=== PATIENT | male | born 1950 | race Hispanic/Latino ===

== ENCOUNTER → 2018-04-07 | Day surgery (SDC) | payer MEDICARE ==
--- NOTE | 2018-04-06 11:04 | Pre Op History & Physical ---
DATE OF SURGERY: April 07, 2018 CHIEF COMPLAINT: Chronic sinusitis and nasal obstruction. HPI: This 68 years old male has history of nasal obstruction. He has no epistaxis. The obstruction is worse on the left side. Patient has no trauma to the nose. He claimed that he has normal sense of smell. No previous surgery to the nose. The patient has some headaches. His condition has been treated with topical nasal steroid, decongestant, antibiotics with no improvement. A CT scan of paranasal sinuses done before surgery showed that patient has chronic pansinusitis on both sides. REVIEW OF SYSTEMS: System review showed no recent cardiovascular, respiratory, or GI problem. PAST MEDICAL HISTORY: Patient has no significant medical problem. PAST SURGICAL HISTORY: He has previous umbilical hernia surgery repair, cholecystectomy, and appendectomy. ALLERGIES: HE HAS NO KNOWN ALLERGY TO MEDICATION. CURRENT MEDICATIONS: He is on aspirin, clonazepam, venlafaxine, levothyroxine, simvastatin, and Generlac solution. SOCIAL HISTORY: HE is a nonsmoker and nondrinker. FAMILY HISTORY: Noncontributory. PHYSICAL EXAMINATION VITAL SIGNS: Within normal limits. EAR: Normal tympanic membranes bilaterally. NOSE: Hypertrophy of the inferior turbinate. A polyp was noted in the left nasal cavity. THROAT: Oropharynx and oral cavity show 1+ tonsils bilaterally with Mallampati level 2. NECK: No lymph node or thyroid palpable. CHEST: Good air entry bilaterally. CARDIOVASCULAR: S1 and S2. No murmur noted. IMPRESSION AND PLAN: Mr. Mendez has chronic sinusitis and nasal obstruction, which has been resistant to conservative therapy. Suggested treatment is endoscopic sinus surgery, septoplasty, resection of inferior turbinate, and other necessary procedures. The complication of procedure includes, but not limited to, bleeding, infection, CSF leak, blindness, double vision, meningitis, septal perforation, septal hematoma, persistent nasal obstruction, persistent nasal crusting, nasal deformity, or recurrence of the sinus problem. The alternative would be continued observation, continued antibiotic therapy, topical nasal steroid therapy, systemic steroid therapy, and decongestant. The patient was scheduled for surgery about 2 weeks ago; however, the patient ate on the day of surgery and surgery was canceled and rescheduled. Patient was advised to stop his aspirin at least 7 to 10 days before surgery. Patient has elected to undergo the surgical procedure. Job#: [id number] TRACY cc:DR. MATTHEW LOPEZ
[2018-04-06 13:13] LABS: BASOPHILS % 0.4 % (0.0-1.0); EOSINOPHILS # (AUTO) 0.5 (0.0-0.4); EOSINOPHILS % 5.5 % (0.0-6.0); HEMATOCRIT 41.2 % (38.2-49.6); HEMOGLOBIN 13.8 g/dL (14.0-18.0); LYMPHOCYTES # (AUTO) 3.3 (1.0-3.2); LYMPHOCYTES % 39.1 % (18.0-39.1); MEAN CORPUSCULAR HGB CONC 33.5 g/dL (31-35); MEAN CORPUSCULAR VOLUME 92.6 fL (81-99); MONOCYTES # (AUTO) 0.6 (0.2-0.8); MONOCYTES % 7.6 % (4.4-11.3); NEUTROPHILS # (AUTO) 3.9 (2.1-6.9); NEUTROPHILS % 47.3 % (38.7-80.0); PLATELET COUNT 195 x10e3/uL (140-360); RED BLOOD COUNT 4.45 x10e6/uL (4.3-5.7); RED CELL DISTRIBUTION WIDTH 12.7 % (11.7-14.4)
--- NOTE | 2018-04-06 14:01 | Diagnostic Imaging Report ---
EXAMINATION: PA and lateral views of the chest. COMPARISON: None CLINICAL HISTORY: Preop, nasal surgery DISCUSSION: Lungs are well-inflated. No focal consolidation, pleural effusion, or pneumothorax. Calcified granuloma left lower lobe. Tortuous thoracic aorta with otherwise normal cardiomediastinal contour. No acute osseous abnormality. Multilevel degenerative disc disease of the thoracic spine. IMPRESSION: No acute cardiopulmonary abnormalities. Signed by: Dr. Jorge Moncada M.D. on 04/06/2018 1:58 PM
[~2018-04-07] MED LIST: ACETAMINOPHEN/CODEINE 300MG - 30MG TAB ONE; ALFUZOSIN HCL10 MG; CETIRIZINE HCL10 MG; CLONAZEPAM0.5 MG PO; DEXAMETHASONE SOD PHOS 10 MG/1 ML VIAL ONE; EPINEPHRINE HCL INJ 1 MG/ML AMP ONE; FENTANYL CITRATE/PF 100MCG/2 ML INJ ONE; GENERLAC10 GM/15 M; GLUCOSAMINE MS480 ML; GLYCOPYRROLATE INJ 1MG/ 5 ML SYR ONE; LEVOTHYROXINE50 MCG PO; LIDOCAINE 1% W/EPINEPHRINE 20 ML VIAL ONE; LIDOCAINE HCL 2% LOCAL INJ 5 ML SDV VIAL INJ ONE; MIDAZOLAM HCL 2 MG/2 ML VIAL ONE; NEOSTIGMINE 5 MG/5ML SYR ONE; ONDANSETRON HCL INJ 2 MG/ML VIAL ONE; PROPOFOL IV EMULSION 10 MG/ML 20 ML VIAL ONE; ROCURONIUM BROMIDE 10 MG/ML 5ML VIAL ONE; SEVOFLURANE INHAL SOLN 250 ML PEN BTL ONE; SIMVASTATIN40 MG PO; TRIAMCINOLONE 0.1% OINTMENT 15 GM TUBE ONE; VENLAFAXINE HCL75 MG PO; VITAMIN D35000 UNIT
[2018-04-07 12:08] VITALS: BP 129/58
--- NOTE | 2018-04-07 12:43 | Operative Report ---
DATE OF PROCEDURE: April 07, 2018 CHIEF COMPLAINTS 1. Chronic sinusitis. 2. Nasal obstruction. 3. Nasal polyposis. POSTOPERATIVE DIAGNOSES 1. Chronic sinusitis. 2. Nasal obstruction. 3. Nasal polyposis. TITLE OF PROCEDURES 1. Bilateral exploration of nasal frontal recess area. 2. Bilateral anterior and posterior ethmoidectomy. 3. Bilateral maxillary sinus antrostomy. 4. Bilateral resection of polyps in maxillary antrum. 5. Bilateral maxillary antrostomy. 6. Bilateral resection of tissue in maxillary antrum. 7. Bilateral sphenoidectomy. ANESTHESIA: Anesthesiology group. INDICATIONS: This 68-year-old male has history of nasal obstruction, postnasal drip, discharge from his nose. On examination he was noted to have a polyp in the posterior portion of the nasal cavity on the left side at least about 2 to [address] scan of the paranasal sinuses done before surgery showed the patient has pansinusitis, worse on the left side than the right, with a slightly deviated nasal septum to the right side. The patient's condition has been treated with topical nasal steroid, decongestant, antibiotics with no improvement. It was decided that endoscopic sinus surgery and other necessary procedures would be beneficial for him. DETAILS OF PROCEDURE: Patient was taken to the operating room, put under general anesthesia, endotracheally intubated. The nose was injected with 1% Xylocaine with 1:100,000 epinephrine for hemostasis. Epinephrine-soaked pledget was inserted in the nose and subsequently removed. The left paranasal sinuses were approached first. The middle turbinate was medialized. Using the Entellus device, the nasal frontal recess area was entered into the frontal sinus. The nasal frontal recess area was dilated with the balloon. The frontal sinus was irrigated with copious amount of normal saline. Debris and tissue were irrigated out. A polyp was noted in the posterior portion of the nasal cavity on the left side. This was removed using the Blakesley and sent for permanent section. The bulla ethmoidalis was entered. Anterior and posterior ethmoid sinuses were dissected in systematic fashion. Polypoid tissue was noted in both the anterior and posterior ethmoid sinus area. Care was taken during dissection to ascertain the orbit was not entered. Sphenoid sinus was entered through a natural ostium. This was enlarged using a microshaver. The inflamed tissue in the sphenoid sinus was dissected using the microshaver. Using a curved probe, the natural ostium in the maxillary sinus was entered. This was enlarged anteriorly and posteriorly using the backbiting and Tan-Cut forceps respectively. Inflamed mucosal thickening was dissected using the up-biting and Tan-Cut forceps. The right paranasal sinuses were approached first. Middle turbinate was medialized. Again using the Entellus device, the frontal sinus was entered. This was enlarged using the balloon. The frontal sinus was irrigated with copious amount of normal saline. Debris and tissue were irrigated out. The bulla ethmoidalis was entered, and the anterior and posterior ethmoid sinuses were dissected in systematic fashion. Polypoid tissue was noted both in the anterior and posterior ethmoid sinus area. Care was taken during dissection to ascertain the orbit was not entered. The sphenoid sinus was entered through a natural ostium. This was enlarged using a microshaver. The mucosal thickening with inflamed mucosa was dissected using the microshaver. Using a curved probe, the natural ostium in the maxillary sinus was entered. This was enlarged anteriorly and posteriorly using the backbiting and Tan-Cut forceps respectively. The inflamed maxillary sinus mucosa was dissected using the microshaver. Nasopore was inserted in the sinus cavities on either side. This was done to prevent synechiae formation and for hemostasis. The patient tolerated the above procedure well with estimated blood loss about 20 mL. He was given 20 mg of Decadron intraoperatively. Patient was able to be returned for the recovery room in stable condition. Job#: [id number] KUSUM
--- OUTSIDE RECORDS SUMMARY | 2018-04-07 14:42 | XMS REPORT | Clinical Summary ---
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 Disp. Refills Start End Date Status Date aspirin (ECOTRIN) 81 MG Take 81 mg by mouth Active enteric coated tablet daily. clonAZEPAM (KlonoPIN) 0.5 Take 0.5 mg by mouth 2 Active MG tablet (two) times a day as needed for anxiety or seizures. levothyroxine (SYNTHROID, Take 50 mcg by mouth Active LEVOXYL) 50 mcg tablet every morning. metFORMIN XR Take 500 mg by mouth Active (GLUCOPHAGE-XR) 500 mg 24 daily. hr tablet simvastatin (ZOCOR) 40 MG Take 40 mg by mouth Active tablet nightly. venlafaxine XR Take 150 mg by mouth Active (EFFEXOR-XR) 150 MG 24 hr daily. capsule multivitamin with Take 1 tablet by mouth Active minerals tablet daily. GLUCOSAMINE/D3/BOSWELLIA Take by mouth daily. Active NIKOLAI (GLUCOSAMINE DAILY COMPLEX ORAL) cholecalciferol, vitamin Take 2,000 Units by mouth Active D3, (VITAMIN D3) 2,000 daily. unit capsule capsule niacin 500 MG tablet Take 500 mg by mouth Active daily with breakfast. pantoprazole (PROTONIX) Take 1 tablet (40 mg 30 tablet 11 03/25/20 03/25/20 40 MG EC total) by mouth daily. 17 18 tabletIndications: Generalized abdominal pain, Colon cancer screening Active Problems Not on file Encounters Date Type Specialty Care Team Description 05/06/2017 Office Visit Gastroenterology Chris Lott MD Constipation, unspecified constipation type (Primary Dx) 04/09/2017 [facility] Gastroenterology Chris Lott MD Screen for colon cancer Encounter (Primary Dx); Screening for colon cancer; Generalized abdominal pain 04/09/2017 Anesthesia Gastroenterology Perez Spangler MD Event 04/09/2017 Procedure Pass Gastroenterology 04/09/2017 Surgery Gastroenterology Chris Lott MD COLONOSCOPY w/ biopsy after 04/06/2017 Family History Medical History Relation Name Comments Diabetes Father Diabetes Mother Hypertension Mother Relation Name Status Comments Father Mother Social History Tobacco Use Types Packs/Day Years Used Date Never Smoker Smokeless Tobacco: Never Used Alcohol Use Drinks/Week oz/Week Comments No Sex Assigned at Date Recorded Not on file Last Filed Vital Signs Vital Sign Reading Time Taken Blood Pressure 123/77 05/06/2017 10:32 AM [facility] Pulse 61 05/06/2017 10:32 AM [facility] Temperature 37.1 C (98.8 F) 05/06/2017 10:32 AM [facility] Respiratory Rate 12 05/06/2017 10:32 AM [facility] Oxygen Saturation 100% 04/09/2017 11:00 AM CDT Inhaled Oxygen - - Concentration Weight 64.4 kg (142 lb) 05/06/2017 10:32 AM [facility] Height 165.1 cm (5' 5") 05/06/2017 10:32 AM [facility] Body Mass Index 23.63 05/06/2017 10:32 AM [facility] Plan of Treatment Health Maintenance Due Date Last Done Comments COLON CANCER SCREENING 02/01/2002 SHINGRIX VACCINE (#1) 02/01/2002 ZOSTER VACCINE 2012 PNEUMOCOCCAL 02/01/2017 POLYSACCHARIDE VACCINE AGE 65 AND OVER PNEUMOCOCCAL-13 02/01/2017 INFLUENZA VACCINE 01/21/2018 Procedures Procedure Name Priority Date/Time Associated Diagnosis Comments SURGICAL PATHOLOGY Routine 04/09/2017 Results for this REQUEST 12:42 PM CDT procedure are in the results section. ESOPHAGOGASTRODUODENOSCOP 04/09/2017 Screening for colon Y (EGD) 11:15 AM CDT cancer COLONOSCOPY 04/09/2017 Screening for colon 11:15 AM CDT cancer POC GLUCOSE Routine 04/09/2017 Results for this 9:03 AM CDT procedure are in the results section. after 04/06/2017 Results * Surgical pathology request (04/09/2017 12:42 PM) [facility] MEDIC[facility] Surgical pathology report See link below for PDF Lab [facility] Report PATHOLOGY AND GENOMIC MEDICINE Performing Organization Address City/State/Zipcode Phone Number [facility] [address] [place] [address] PATHOLOGY AND GENOMIC MEDICINE * POC glucose (04/09/2017 9:03 AM) POC glucose 79 65 - 100 mg/dL [facility] OF Comment: PATHOLOGY AND Meter ID: [id number] GENOMIC MEDICINE Collar Cutter: Alana Castillo Performing Organization Address City/State/Zipcode Phone Number [facility] [address] [place] [address] PATHOLOGY AND GENOMIC MEDICINE after 04/06/2017 Insurance Payer Benefit Subscriber ID Type Phone Address Plan / Group MEDICARE MEDICARE xxxxxxxxxx Medicare [place], [place] PART A AND B Home: [address] [place], [place] [phone] [place] [address]
--- OUTSIDE RECORDS SUMMARY | 2018-04-07 14:42 | XMS REPORT ---
Author Author [facility] Address Unknown Phone Unavailable Care Team Providers Care Home Economics Teacher Name Role Phone Poonam COLES Unavailable Unavailable Problems This patient has no known problems. Allergies, Adverse Reactions, Alerts This patient has no known allergies or adverse reactions. Medications This patient has no known medications. Results Test Description Test Time Test Comments Text Results Atomic Results Result Comments CHEST 2 VIEWS 2018-04-06 13:57:00 [place] [address] Patient Name: ISRAEL BENNETT MR #: [id number] : 1950 Age/Sex: 68/M Req #: [id number] Adm Physician: Ordered by: AURELIANO COLES MD Report #: [id number] Location: OR Room/Bed: Procedure: [id number] DX/CHEST 2 VIEWS Exam Date: 04/06/18 Exam Time: 1340 REPORT STATUS: Signed EXAMINATION: PA and lateral views of the chest. COMPARISON: None CLINICAL HISTORY: Preop, nasal surgery DISCUSSION: Lungs are well-inflated. No focal consolidation, pleural effusion, or pneumothorax. Calcified granuloma left lower lobe. Tortuous thoracic aorta with otherwise normal cardiomediastinal contour. No acute osseous abnormality. Multilevel degenerative disc disease of the thoracic spine. IMPRESSION: No acute cardiopulmonary abnormalities. Signed by: Dr. Elio Carver M.D. on 04/06/2018 1:58 PM Dictated By: ELIO CARVER MD [id number] Transcribed By: ERNESTO on 04/06/182 COPY TO: AURELIANO COLES MD
== END | disposition home or self-care (01) ==
LOC: OR 08:25
PROVIDERS: ATTEND Otolaryngology Otolaryngology/Facial Plastic Surgery
DX: J32.0 Chronic maxillary sinusitis (principal); J32.1 Chronic frontal sinusitis; J32.2 Chronic ethmoidal sinusitis; J32.3 Chronic sphenoidal sinusitis; J33.8 Other polyp of sinus; J34.2 Deviated nasal septum; J34.89 Other specified disorders of nose and nasal sinuses; E78.5 Hyperlipidemia, unspecified; I10 Essential (primary) hypertension; E03.9 Hypothyroidism, unspecified; K21.9 Gastro-esophageal reflux disease without esophagitis; R00.1 Bradycardia, unspecified; Z01.810 Encounter for preprocedural cardiovascular examination; Z01.812 Encounter for preprocedural laboratory examination; Z01.818 Encounter for other preprocedural examination; Z79.82 Long term (current) use of aspirin
CPT/HCPCS: 31253; 31259; 31267; 36415; 71046; 85025; 88304; 88305; 93005; J0171; J1100; J2001; J2250; J2405; J3490